=== PATIENT | female | born 1950 | race Caucasian/White ===

== ENCOUNTER 2023-09-01 16:45 | Emergency (ER) | payer OTHER ==
[~2023-09-01] VITALS: Ht 157.5 cm; Wt 77.1 kg
[2023-09-01 17:08] VITALS: BP_SYST 146; PULSE 89; RESP 18; TEMP 97.1; O2SAT 97
[2023-09-01 17:57] LABS: BASOPHILS % (AUTO) 0.2 % (0.0-2.0); EOSINOPHILS # (AUTO) 0.1 K/uL (0.0-0.4); EOSINOPHILS % (AUTO) 0.6 % (0.0-4.0); HEMATOCRIT 40.6 % (36-54); HEMOGLOBIN 13.9 g/dL (14.0-18.0); LYMPHOCYTES # (AUTO) 2.2 K/uL (1.0-5.5); LYMPHOCYTES % (AUTO) 16.1 % (20.5-51.5); MEAN CORPUSCULAR HEMOGLOBIN 29 pg (27-31); MEAN CORPUSCULAR HGB CONC 34 % (32-36); MEAN CORPUSCULAR VOLUME 86 fL (79.0-98.0); MONOCYTES % (AUTO) 7.4 % (1.7-9.3); NEUTROPHILS # (AUTO) 10.4 K/uL (1.8-7.7); NEUTROPHILS % (AUTO) 75.7 % (40.0-70.0); PLATELET COUNT (AUTO) 335 K/uL (130-430); RED BLOOD CELL COUNT(AUTO) 4.73 MIL/uL (4.2-6.2); RED CELL DISTRIBUTION WIDTH 14.3 % (9.0-15.0); WHITE BLOOD COUNT (AUTO) 13.7 K/uL (4.8-10.8)
[2023-09-01 18:09] LABS: ANION GAP 11 (5-15); CALCIUM 10.3 mg/dL (8.4-11.0); CARBON DIOXIDE 29 mmol/L (23-29); CHLORIDE 99 mmol/L (98-107); GLUCOSE 122 mg/dL (74-106); POTASSIUM 3.9 mmol/L (3.5-5.1); SODIUM SERUM 139 mmol/L (136-145); UREA NITROGEN, BLOOD 19 mg/dL (8-21)
[2023-09-01 18:13] LABS: ALANINE AMINOTRANSFERASE 23 U/L (12-78); ALBUMIN 3.8 g/dL (3.4-4.8); ASPARTATE AMINOTRANSFERASE 19 U/L (10-37); BILIRUBIN,DIRECT 0.2 mg/dL (0.0-0.3); LIPASE 33 U/L (16-77); TOTAL BILIRUBIN 0.6 mg/dL (0.0-1.0); TOTAL PROTEIN, SERUM 8.1 g/dL (6.4-8.3)
[2023-09-01] MEDS ORDERED: DICY-14 PO (18:44)
[2023-09-02] MEDS ORDERED: ONDA-8 TL (10:47)
[2023-09-02] MEDS ORDERED: HYDR-3917 PO (10:47)
== END 2023-09-01 19:00 | disposition home or self-care (01) ==
LOC: SED 16:45 → EDSEX 16:45 → SED 19:00
DX: K80.20 Calculus of gallbladder without cholecystitis without obstruction (principal); R10.12 Left upper quadrant pain; Z88.0 Allergy status to penicillin; Z88.6 Allergy status to analgesic agent; Z79.899 Other long term (current) drug therapy
CPT/HCPCS: 36415; 76376; 80048; 80076; 83690; 85025; 99284

== ENCOUNTER 2023-09-02 08:39 | Emergency (ER) | payer OTHER ==
[~2023-09-02] VITALS: Ht 162.6 cm; Wt 74.8 kg
[~2023-09-02 08:39] MED LIST: DICY-14 PO
[2023-09-02 08:50] VITALS: BP_SYST 154; PULSE 82; RESP 18; TEMP 98.2; O2SAT 95
[2023-09-02] MEDS ORDERED: ONDANSETRON 4 MG ODT TAB PO ONE (09:00)
[2023-09-02] MEDS ORDERED: KETOROLAC TROMETHAMINE 60 MG/2 ML VIAL IM ONE (09:00)
[2023-09-02 09:11] LABS: BASOPHILS % (AUTO) 0.3 % (0.0-2.0); EOSINOPHILS % (AUTO) 0.1 % (0.0-4.0); HEMATOCRIT 40.4 % (36-48); HEMOGLOBIN 13.8 g/dL (12.0-16.0); LYMPHOCYTES # (AUTO) 1.3 K/uL (1.0-5.5); LYMPHOCYTES % (AUTO) 7.9 % (20.5-51.5); MEAN CORPUSCULAR HEMOGLOBIN 29 pg (27-31); MEAN CORPUSCULAR HGB CONC 34 % (32-36); MEAN CORPUSCULAR VOLUME 85 fL (79.0-98.0); MONOCYTES # (AUTO) 1.1 K/uL (0.0-1.0); MONOCYTES % (AUTO) 6.8 % (1.7-9.3); NEUTROPHILS # (AUTO) 14.4 K/uL (1.8-7.7); NEUTROPHILS % (AUTO) 84.9 % (40.0-70.0); PLATELET COUNT (AUTO) 313 K/uL (130-430); RED BLOOD CELL COUNT(AUTO) 4.76 MIL/uL (4.2-6.2); RED CELL DISTRIBUTION WIDTH 14.4 % (9.0-15.0); WHITE BLOOD COUNT (AUTO) 16.9 K/uL (4.8-10.8)
[2023-09-02 09:28] LABS: ANION GAP 12 (5-15); CALCIUM 10.4 mg/dL (8.4-11.0); CARBON DIOXIDE 29 mmol/L (23-29); CHLORIDE 98 mmol/L (98-107); CREATININE 1.64 mg/dL (0.55-1.30); GLUCOSE 153 mg/dL (74-106); POTASSIUM 3.8 mmol/L (3.5-5.1); SODIUM SERUM 139 mmol/L (136-145); UREA NITROGEN, BLOOD 23 mg/dL (8-21)
[2023-09-02 10:02] LABS: ALANINE AMINOTRANSFERASE 22 U/L (12-78); ALBUMIN 3.8 g/dL (3.4-4.8); AMYLASE 97 U/L (0-100); ASPARTATE AMINOTRANSFERASE 17 U/L (10-37); BILIRUBIN,DIRECT 0.2 mg/dL (0.0-0.3); LIPASE 31 U/L (16-77); TOTAL BILIRUBIN 0.7 mg/dL (0.0-1.0); TOTAL PROTEIN, SERUM 8.4 g/dL (6.4-8.3)
[2023-09-02] MEDS ORDERED: HYDR-3917 PO (10:47)
[2023-09-02] MEDS ORDERED: ONDA-8 TL (10:47)
[2023-09-02 11:07] VITALS: BP_SYST 111; PULSE 84; RESP 18; TEMP 97.9; O2SAT 98
== END 2023-09-02 10:55 | disposition home or self-care (01) ==
LOC: SED 08:39
DX: K80.50 Calculus of bile duct without cholangitis or cholecystitis without obstruction (principal); R10.13 Epigastric pain; R11.10 Vomiting, unspecified; Z88.0 Allergy status to penicillin; Z88.6 Allergy status to analgesic agent; Z79.899 Other long term (current) drug therapy
CPT/HCPCS: 99285; 76705; 80076; 80048; 82150; 83690; 85025; 36415; 96372; 83605; 82397; Q0162; J1885

== ENCOUNTER 2023-09-06 09:27 | Inpatient (IN) | payer OTHER ==
[~2023-09-06] VITALS: Ht 160 cm; Wt 76.2 kg
[2023-09-06 09:27] VITALS: BP_SYST 137; PULSE 78; RESP 18; TEMP 97.8; O2SAT 97
[~2023-09-06 09:27] MED LIST changes: +HYDR-3917 PO; +ONDA-8 TL
[2023-09-06 10:15] LABS: BASOPHILS % (AUTO) 0.4 % (0.0-2.0); EOSINOPHILS # (AUTO) 0.4 K/uL (0.0-0.4); EOSINOPHILS % (AUTO) 2.7 % (0.0-4.0); HEMATOCRIT 39.7 % (36-48); HEMOGLOBIN 13.5 g/dL (12.0-16.0); LYMPHOCYTES # (AUTO) 2.2 K/uL (1.0-5.5); MEAN CORPUSCULAR HEMOGLOBIN 29 pg (27-31); MEAN CORPUSCULAR HGB CONC 34 % (32-36); MEAN CORPUSCULAR VOLUME 85 fL (79.0-98.0); MONOCYTES # (AUTO) 1.2 K/uL (0.0-1.0); MONOCYTES % (AUTO) 8.8 % (1.7-9.3); NEUTROPHILS # (AUTO) 9.8 K/uL (1.8-7.7); NEUTROPHILS % (AUTO) 72.1 % (40.0-70.0); PLATELET COUNT (AUTO) 385 K/uL (130-430); RED BLOOD CELL COUNT(AUTO) 4.66 MIL/uL (4.2-6.2); RED CELL DISTRIBUTION WIDTH 14.4 % (9.0-15.0); WHITE BLOOD COUNT (AUTO) 13.5 K/uL (4.8-10.8)
[2023-09-06 10:24] LABS: ANION GAP 14 (5-15); CALCIUM 10.2 mg/dL (8.4-11.0); CARBON DIOXIDE 28 mmol/L (23-29); CHLORIDE 94 mmol/L (98-107); CREATININE 2.32 mg/dL (0.55-1.30); GLUCOSE 123 mg/dL (74-106); POTASSIUM 3.9 mmol/L (3.5-5.1); SODIUM SERUM 136 mmol/L (136-145); UREA NITROGEN, BLOOD 43 mg/dL (8-21)
[2023-09-06 10:26] LABS: PROTHROMBIN TIME 10.5 SECS (9.5-12.5)
[2023-09-06 10:38] LABS: ALANINE AMINOTRANSFERASE 34 U/L (12-78); ASPARTATE AMINOTRANSFERASE 31 U/L (10-37); BILIRUBIN,DIRECT 0.3 mg/dL (0.0-0.3); TOTAL BILIRUBIN 0.9 mg/dL (0.0-1.0); TOTAL PROTEIN, SERUM 8.7 g/dL (6.4-8.3)
[2023-09-06 10:50] LABS: BILIRUBIN,URINE NEGATIVE (NEGATIVE); BLOOD, URINE 3+ (NEGATIVE); COLOR,URINE YELLOW (YELLOW); GLUCOSE,URINE NEGATIVE (NEGATIVE); KETONES,URINE NEGATIVE (NEGATIVE); LEUKOCYTE ESTERASE ,URINE 2+ (NEGATIVE); NITRITE, URINE NEGATIVE (NEGATIVE); PROTEIN URINE TRACE (NEGATIVE)
[2023-09-06 10:57] LABS: CLARITY/URINE HAZY (CLEAR)
[2023-09-06] MEDS ORDERED: NACL 0.9% 1,000 ML IV ONE (11:15)
[2023-09-06] MEDS ORDERED: ONDANSETRON HCL 4 MG/2 ML VIAL IVP ONE (11:15)
[2023-09-06] MEDS ORDERED: MORPHINE 2 MG/ML INJ. SYRINGE IVP ONE (11:15)
[2023-09-06 11:28] LABS: BACTERIA,URINE FEW /HPF (None Seen)
[2023-09-06 11:29] LABS: FINE GRANULAR CASTS,URINE 0-1 /LPF (None Seen); URINE AMORPHOUS URATE 2+ /HPF (None Seen)
[2023-09-06] MEDS ORDERED: LOSA25TA18 PO (14:36)
[2023-09-06] MEDS ORDERED: TRIA1CAP88 (14:36)
[2023-09-06] MEDS ORDERED: LEVO100T9 PO (14:36)
[2023-09-06] MEDS ORDERED: ATEN50TA PO (14:36)
[2023-09-06] MEDS ORDERED: ONDANSETRON HCL 4 MG/2 ML VIAL IVP PRN (14:45)
[2023-09-06] MEDS ORDERED: HYDROcodone/ACETAMIN 5-325 MG TAB (NORCO/ VICODIN) PO PRN (14:45)
[2023-09-06] MEDS ORDERED: HYDROcodone/ACETAMIN 10-325 MG TAB PO PRN (14:45)
[2023-09-06] MEDS ORDERED: ACETAMINOPHEN 325 MG TABLET PO PRN ×2 (14:45)
[2023-09-06] MEDS ORDERED: MORPHINE 2 MG/ML INJ. SYRINGE IVP PRN (14:45)
[2023-09-06] MEDS: NACL 0.9% 1,000 ML IV SCH (16:20)
[2023-09-06 20:40] VITALS: BP_SYST 126; PULSE 64; RESP 18; TEMP 98.4; O2SAT 96
[2023-09-06 20:58] VITALS: BP_SYST 126; PULSE 64; RESP 18; TEMP 98.4
[2023-09-06] MEDS ORDERED: ONDANSETRON HCL 4 MG/2 ML VIAL ONE (23:02)
[2023-09-06] MEDS ORDERED: ROCURONIUM BROMIDE 10 MG/ML (ZEMURON) ONE (23:02)
[2023-09-06] MEDS ORDERED: NS IRRIG SOLN 1000 ML IR ONE (23:02)
[2023-09-06] MEDS ORDERED: GLYCOPYRROLATE 0.2 MG/ML VIAL ONE (23:02)
[2023-09-06] MEDS ORDERED: fentaNYL CITRATE/PF 100 MCG/2 ML AMP ONE (23:02)
[2023-09-06] MEDS ORDERED: METOCLOPRAMIDE HCL 10 MG/2 ML VIAL ONE (23:02)
[2023-09-06] MEDS ORDERED: SEVOFLURANE 15 MIN GAS INH ONE (23:02)
[2023-09-06] MEDS ORDERED: NEOSTIGMINE METHYLSULFATE 1 MG/ML, 10 ML VIAL ONE (23:02)
[2023-09-06] MEDS ORDERED: NS 50 ML BAG IV ONE (23:02)
[2023-09-06] MEDS ORDERED: ETOMIDATE 20 MG/ 10 ML VIAL (AMIDATE) ONE (23:02)
[2023-09-06] MEDS ORDERED: WATER FOR IRRIGATION,STERILE 1,000 ML IRRIG.SOLN IR ONE (23:02)
[2023-09-06] MEDS ORDERED: ACETAMINOPHEN I.V. 1000 MG 100 ML IV ONE (23:39)
[2023-09-07] MEDS ORDERED: HYDROmorphone 1 MG/ML INJ. CARTRIDGE IVP PRN ×2 (00:30)
[2023-09-07] MEDS ORDERED: ACETAMINOPHEN 325 MG TABLET PO PRN (00:30)
[2023-09-07] MEDS ORDERED: ONDANSETRON HCL 4 MG/2 ML VIAL IVP PRN ×2 (00:30)
[2023-09-07] MEDS ORDERED: HYDROcodone/ACETAMIN 5-325 MG TAB (NORCO/ VICODIN) PO PRN (00:30)
[2023-09-07] MEDS: NACL 0.9% 1,000 ML IV SCH ×4 (00:30→22:11)
[2023-09-07] MEDS ORDERED: HYDROmorphone 2 MG/ML VIAL IVP PRN (00:30)
[2023-09-07] MEDS ORDERED: NACL 0.9% 1,000 ML IV SCH (00:30)
[2023-09-07] MEDS ORDERED: NALOXONE HCL 0.4 MG/ML AMP (NARCAN) IVP PRN ×2 (00:30)
[2023-09-07] MEDS ORDERED: metroNIDAZOLE 500 mg/NS 100 ML IV ONE (02:15)
[2023-09-07] MEDS ORDERED: CEFAZOLIN 2 GM IVPB PREMIX 50 ML IV ONE (02:16)
[2023-09-07] MEDS: CEFAZOLIN 2 GM IVPB PREMIX 50 ML IV SCH ×2 (02:59→08:52)
[2023-09-07 03:00] VITALS: BP_SYST 118; PULSE 63; RESP 16; TEMP 98.1; O2SAT 96
[2023-09-07] MEDS: metroNIDAZOLE 500 mg/NS 100 ML IV SCH ×2 (03:00→10:01)
[2023-09-07 06:04] LABS: BASOPHILS % (AUTO) 0.3 % (0.0-2.0); EOSINOPHILS # (AUTO) 0.2 K/uL (0.0-0.4); EOSINOPHILS % (AUTO) 1.9 % (0.0-4.0); HEMOGLOBIN 11.4 g/dL (12.0-16.0); LYMPHOCYTES # (AUTO) 1.8 K/uL (1.0-5.5); LYMPHOCYTES % (AUTO) 14.9 % (20.5-51.5); MEAN CORPUSCULAR HEMOGLOBIN 29 pg (27-31); MEAN CORPUSCULAR HGB CONC 34 % (32-36); MEAN CORPUSCULAR VOLUME 85 fL (79.0-98.0); MONOCYTES # (AUTO) 1.1 K/uL (0.0-1.0); MONOCYTES % (AUTO) 9.4 % (1.7-9.3); NEUTROPHILS % (AUTO) 73.5 % (40.0-70.0); PLATELET COUNT (AUTO) 339 K/uL (130-430); RED BLOOD CELL COUNT(AUTO) 3.99 MIL/uL (4.2-6.2); RED CELL DISTRIBUTION WIDTH 14.5 % (9.0-15.0); WHITE BLOOD COUNT (AUTO) 12.3 K/uL (4.8-10.8)
[2023-09-07 06:29] LABS: ALANINE AMINOTRANSFERASE 37 U/L (12-78); ALBUMIN 2.3 g/dL (3.4-4.8); ANION GAP 14 (5-15); CARBON DIOXIDE 24 mmol/L (23-29); CHLORIDE 100 mmol/L (98-107); CREATININE 2.01 mg/dL (0.55-1.30); GLUCOSE 104 mg/dL (74-106); POTASSIUM 3.2 mmol/L (3.5-5.1); SODIUM SERUM 138 mmol/L (136-145); TOTAL BILIRUBIN 0.6 mg/dL (0.0-1.0); TOTAL PROTEIN, SERUM 6.9 g/dL (6.4-8.3); UREA NITROGEN, BLOOD 39 mg/dL (8-21)
[2023-09-07 07:26] LABS: ASPARTATE AMINOTRANSFERASE 49 U/L (10-37)
[2023-09-07 08:00] VITALS: BP_SYST 117; PULSE 63; RESP 18; TEMP 98.1; O2SAT 95; O2SAT 96
[2023-09-07] MEDS ORDERED: POTASSIUM CHLORIDE 20 MEQ TABLET.ER PO ONE (10:00)
[2023-09-07 12:00] VITALS: BP_SYST 119; PULSE 63; RESP 18; TEMP 98.5; O2SAT 98
[2023-09-07 16:00] VITALS: BP_SYST 118; PULSE 65; RESP 18; TEMP 98.3; O2SAT 97
[2023-09-07 20:00] VITALS: BP_SYST 121; PULSE 68; RESP 18; TEMP 97.8; O2SAT 96
[2023-09-07] MEDS ORDERED: LORazepam 2 MG/ML VIAL IVP PRN (21:45)
[2023-09-07] MEDS ORDERED: LORazepam 1 MG TABLET PO PRN (21:45)
[2023-09-08] VITALS: BP_SYST 118; PULSE 64; RESP 18; TEMP 97.6; O2SAT 97
[2023-09-08] MEDS: NACL 0.9% 1,000 ML IV SCH ×2 (06:25→16:30)
[2023-09-08 07:07] LABS: BASOPHILS % (AUTO) 0.3 % (0.0-2.0); EOSINOPHILS # (AUTO) 0.4 K/uL (0.0-0.4); EOSINOPHILS % (AUTO) 3.4 % (0.0-4.0); HEMATOCRIT 31.6 % (36-48); HEMOGLOBIN 10.6 g/dL (12.0-16.0); LYMPHOCYTES # (AUTO) 2.1 K/uL (1.0-5.5); LYMPHOCYTES % (AUTO) 19.4 % (20.5-51.5); MEAN CORPUSCULAR HEMOGLOBIN 29 pg (27-31); MEAN CORPUSCULAR HGB CONC 34 % (32-36); MEAN CORPUSCULAR VOLUME 85 fL (79.0-98.0); MONOCYTES # (AUTO) 1.2 K/uL (0.0-1.0); MONOCYTES % (AUTO) 11.7 % (1.7-9.3); NEUTROPHILS # (AUTO) 6.9 K/uL (1.8-7.7); NEUTROPHILS % (AUTO) 65.2 % (40.0-70.0); PLATELET COUNT (AUTO) 334 K/uL (130-430); RED BLOOD CELL COUNT(AUTO) 3.69 MIL/uL (4.2-6.2); RED CELL DISTRIBUTION WIDTH 14.5 % (9.0-15.0); WHITE BLOOD COUNT (AUTO) 10.6 K/uL (4.8-10.8)
[2023-09-08 07:29] LABS: ALANINE AMINOTRANSFERASE 21 U/L (12-78); ALBUMIN 2.1 g/dL (3.4-4.8); ANION GAP 9 (5-15); ASPARTATE AMINOTRANSFERASE 27 U/L (10-37); CALCIUM 8.5 mg/dL (8.4-11.0); CARBON DIOXIDE 26 mmol/L (23-29); CHLORIDE 103 mmol/L (98-107); CREATININE 1.45 mg/dL (0.55-1.30); GLUCOSE 104 mg/dL (74-106); POTASSIUM 3.1 mmol/L (3.5-5.1); SODIUM SERUM 138 mmol/L (136-145); TOTAL BILIRUBIN 0.7 mg/dL (0.0-1.0); TOTAL PROTEIN, SERUM 6.4 g/dL (6.4-8.3); UREA NITROGEN, BLOOD 26 mg/dL (8-21)
[2023-09-08 08:33] VITALS: BP_SYST 114; PULSE 73; RESP 18; TEMP 97.3; O2SAT 93
[2023-09-08 11:39] VITALS: BP_SYST 118; PULSE 70; RESP 16; TEMP 97.4; O2SAT 95
[2023-09-08 16:08] VITALS: BP_SYST 128; PULSE 86; RESP 16; TEMP 98.2; O2SAT 94
[2023-09-08] MEDS ORDERED: HYDR-3917 PO (16:20)
[2023-09-08] MEDS ORDERED: HYDR-3698 PO (17:04)
== END 2023-09-08 18:39 | disposition home or self-care (01) | DRG 418 ==
LOC: SED 09:27 → SMU 14:32
PROVIDERS: ADMIT Family Medicine; ATTEND Family Medicine
PROC: BF131ZZ Fluoroscopy of Gallbladder and Bile Ducts using Low Osmolar Contrast (ICD-10-PCS; 2023-09-06)
PROC: 0FT44ZZ Resection of Gallbladder, Percutaneous Endoscopic Approach (ICD-10-PCS; principal; 2023-09-06 23:02)
DX: K80.01 Calculus of gallbladder with acute cholecystitis with obstruction (principal); E44.1 Mild protein-calorie malnutrition; K82.1 Hydrops of gallbladder; N39.0 Urinary tract infection, site not specified; N17.9 Acute kidney failure, unspecified; E03.9 Hypothyroidism, unspecified; E78.5 Hyperlipidemia, unspecified; E86.0 Dehydration; I12.9 Hypertensive chronic kidney disease with stage 1 through stage 4 chronic kidney disease, or unspecified chronic kidney disease; N18.9 Chronic kidney disease, unspecified; Z88.0 Allergy status to penicillin; Z88.6 Allergy status to analgesic agent; Z98.891 History of uterine scar from previous surgery; Z68.29 Body mass index [BMI] 29.0-29.9, adult
CPT/HCPCS: 36415; 71045; 74300; 76770; 78226; 80048; 80053; 80076; 81000; 81001; 81015; 83605; 84484; 85025; 85610; 85730; 86886; 86900; 86901; 87040; 87086; 88304; 93005; 96365; 96375; 99285; A9537; C1727; C1758; C1887; J0131; J0690; J1956; J2060; J2405; J2710; J2765; J3010; J3490; Q9967